=== PATIENT | female | born 1975 | race African-American/Black ===

== ENCOUNTER 2020-01-17 07:09 | Emergency (ER) | payer SELFPAY ==
[2020-01-17 08:27] LABS: ABSOLUTE EOSINOPHILS # (AUTO) 0.1 10^3/uL (0.0-0.6); ABSOLUTE LYMPHOCYTES (AUTO) 1.9 10^3/uL (0.5-4.7); ABSOLUTE MONOCYTES (AUTO) 0.4 10^3/uL (0.1-1.4); ABSOLUTE NEUT (AUTO) 1.5 10^3/uL (1.7-8.2); BASOPHILS % (AUTO) 0.4 % (0-2); EOSINOPHILS % (AUTO) 2.4 % (0-6); HEMATOCRIT 39.1 % (36.0-47.0); HEMOGLOBIN 13.3 g/dL (12.0-15.5); LYMPHOCYTES % (AUTO) 47.6 % (13-45); MEAN CORPUSCULAR HEMOGLOBIN 32.4 pg (27.0-33.4); MEAN CORPUSCULAR HGB CONC 33.9 g/dL (32.0-36.0); MEAN CORPUSCULAR VOLUME 96 fl (80-97); PLATELET COUNT 277 10^3/uL (150-450); RED CELL DISTRIBUTION WIDTH 13.6 % (11.5-14.0); SEGMENTED NEUTROPHILS % (AUTO) 39.6 % (42-78); TOTAL CELLS COUNTED % (AUTO) 100 %; WHITE BLOOD COUNT 3.9 10^3/uL (4.0-10.5)
[2020-01-17 08:34] LABS: INTERNATIONAL RATION (INR) 0.99; PROTHROMBIN TIME 13.1 SEC (11.4-15.4)
[2020-01-17] MEDS ORDERED: NORMAL SALINE 1000 ML 1,000 ML IV ONE (08:46)
[2020-01-17] MEDS ORDERED: HYDROMORPHONE HCL INJ/PF 2 MG/ML AMPULE IV ONE (08:47)
[2020-01-17] MEDS ORDERED: METHYLPREDNISOLONE INJ 125 MG/2 ML SDV IV ONE (08:48)
[2020-01-17] MEDS ORDERED: KETOROLAC TROMETHAMINE INJ/PF 30 MG/1 ML SDV IV ONE (08:48)
[2020-01-17 08:50] LABS: ALBUMIN 4.2 g/dL (3.5-5.0); ALKALINE PHOSPHATASE 49 U/L (38-126); ANION GAP 5 (5-19); ASPARTATE AMINO TRANSFERASE 17 U/L (14-36); BILIRUBIN,TOTAL 0.5 mg/dL (0.2-1.3); BLOOD UREA NITROGEN 8 mg/dL (7-20); CARBON DIOXIDE 30 mmol/L (22-30); CHLORIDE 102 mmol/L (98-107); CREATINE KINASE 49 U/L (30-135); GLUCOSE 106 mg/dL (75-110); POTASSIUM 4.3 mmol/L (3.6-5.0); TOTAL PROTEIN 7.3 g/dL (6.3-8.2)
[2020-01-17 09:01] LABS: CREATINE KINASE MB 0.28 ng/mL (<4.55)
[2020-01-17 09:05] LABS: TROPONIN I < 0.012 ng/mL
--- NOTE | 2020-01-17 10:19 | RADIOLOGY REPORT (SQ) ---
EXAM DESCRIPTION: CT LUMBAR SPINE WITHOUT IMAGES COMPLETED DATE/TIME: 01/17/2020 9:14 am REASON FOR STUDY: left side sciatica/back pain COMPARISON: None. TECHNIQUE: Axial images acquired through the lumbar spine without intravenous contrast. Images revi ewed with lung, soft tissue and bone windows. Reconstructed coronal and sagittal MPR images reviewe d. All images stored on PACS. All CT scanners at this facility use dose modulation, iterative reconstruction, and/or weight based d osing when appropriate to reduce radiation dose to as low as reasonably achievable (ALARA). [facility]: Dose Right [facility]: CareDose [facility]: Dose Right [facility]: Teradose 4D [facility]: [employer] RADIATION DOSE: mGy. LIMITATIONS: None. FINDINGS: SEGMENTATION: Normal. No transitional anatomy. ALIGNMENT: Normal. VERTEBRAL BODIES: No fractures. No dislocation. No acute findings. DISCS: Study limited by lack of intrathecal contrast. L1-L2: No significant protrusions. No significant stenosis. L2-L3: No significant protrusions. No significant stenosis. L3-L4: Annular bulging. No high-grade central stenosis. Mild bilateral foraminal narrowing. L4-L5: Broad-based annular disc bulging with mild central stenosis. There is bilateral foraminal jarett rowing. L5-S1: Annular disc bulging with a focal left paracentral protrusion resulting in mass effect on the left S1 nerve root. PEDICLES, TRANSVERSE PROCESSES: No fractures. No dislocation. No acute findings. FACETS, POSTERIOR ELEMENTS: No fractures. No dislocation. No spinal stenosis. HARDWARE: None in the spine. VISUALIZED RIBS: No fractures. SOFT TISSUES: No significant or acute finding in adjacent soft tissues. OTHER: No other significant finding. IMPRESSION: 1. Annular disc bulging at L3-L4 with mild bilateral foraminal narrowing. 2. Broad-based annular disc bulging at L4-L5 with mild central stenosis. There is bilateral foramin al narrowing. 3. Annular disc bulging at L5-S1 with a left paracentral protrusion resulting in mass effect on the left S1 nerve root. TECHNICAL DOCUMENTATION: JOB ID: [id number] Quality ID # [id number]: Final reports with documentation of one or more dose reduction techniques (e.g., Au tomated exposure control, adjustment of the mA and/or kV according to patient size, use of iterative reconstruction technique) 2010 [employer]- All Rights Reserved Reading location - IP/workstation name: [email or web address]
[2020-01-17 10:51] LABS: APPEARANCE,URINE CLEAR; BILIRUBIN,URINE NEGATIVE (NEGATIVE); COLOR,URINE YELLOW; GLUCOSE, URINE NEGATIVE (NEGATIVE); KETONES,URINE NEGATIVE (NEGATIVE); LEUKOCYTE ESTERASE,URINE NEGATIVE (NEGATIVE); NITRITE,URINE NEGATIVE (NEGATIVE); PROTEIN,URINE NEGATIVE (NEGATIVE); URINE SPECIFIC GRAVITY 1.019; UROBILINOGEN,URINE NEGATIVE mg/dL (<2.0)
--- NOTE | 2020-01-17 11:14 | ER Document Report ---
Entered by LIZ THOMPSON SCRIBE 01/17/20 0834 Acting as scribe for:ANDRES LINK MD ED General - General Chief Complaint: Back Pain Stated Complaint: BACK PAIN Time Seen by Provider: 01/17/20 07:31 Information source: Patient Notes: This 45 year old female patient presents to the emergency department today with left back pain. Patient states she injured her lower back and tailbone x2 years ago. Patient states she has not had back pain since then until yesterday while doing laundry. Patient states she is visiting from [place] and has been here x1 month to help her daughter, causing her to do more physical activity lately. Patient states she is with a pain clinic in [place] and has an appointment in x1 month. Patient states her prescribed oxycodone and muscle relaxer did not provide relief this morning for her back pain that is radiating to her left buttocks and left leg. - Related Data Allergies/Adverse Reactions: dogs Allergy (Mild, Uncoded 01/17/20 09:24) grass Allergy (Mild, Uncoded 01/17/20 09:24) pecans Allergy (Mild, Uncoded 01/17/20 09:24) Home Medications: hydrochlorthiazide, lasix, oxycodone 10/325 Past Medical History - General Information source: Patient - Social History Smoking Status: Never Smoker Cigarette use (# per day): No Frequency of alcohol use: Occasional Drug Abuse: Marijuana Lives with: Family Family History: Reviewed & Not Pertinent Patient has homicidal ideation: No Traumatic Medical History: Reports: Other - Lower back injury 2018 Past Surgical History: Reports: Hx Section, Hx Gynecologic Surgery, Hx Hysterectomy, Hx Tubal Ligation Review of Systems - Review of Systems Constitutional: No symptoms reported EENT: No symptoms reported Cardiovascular: No symptoms reported Respiratory: No symptoms reported Gastrointestinal: No symptoms reported Genitourinary: No symptoms reported Female Genitourinary: No symptoms reported Musculoskeletal: See HPI, Back pain - L, Other - LLE pain Skin: No symptoms reported Hematologic/Lymphatic: No symptoms reported Neurological/Psychological: No symptoms reported -: Yes All other systems reviewed and negative Physical Exam - Vital signs Vitals: Temp Pulse Resp BP Pulse Ox 98.6 F 76 20 145/90 H 99 01/17/20 07:16 01/17/20 07:16 01/17/20 07:16 01/17/20 07:16 01/17/20 07:16 - General General appearance: Alert, Other - Appears in significant distress - HEENT Head: Normocephalic, Atraumatic Eyes: Normal Pupils: PERRL - Respiratory Respiratory status: No respiratory distress Chest status: Nontender Breath sounds: Normal Chest palpation: Normal - Cardiovascular Rhythm: Regular Heart sounds: Normal auscultation Murmur: No - Abdominal Inspection: Normal Distension: No distension Bowel sounds: Normal Tenderness: Nontender - Extremities General upper extremity: Normal inspection. No: Edema General lower extremity: No: Edema Notes: Limited ROM of left lower extremity because of pain. Sensation intact of bilateral lower extremities. - Neurological Neuro grossly intact: Yes Cognition: Normal Orientation: AAOx4 Speech: Normal Sensory: Normal - Psychological Associated symptoms: Normal affect, Normal mood - Skin Skin Temperature: Warm Skin Moisture: Dry Skin Color: Normal Course - Re-evaluation Re-evalutation: 01/17/20 11:05 Patient reports her pain feels better at this time. Discussed with patient that she has multiple levels of disc bulging in her back L3-4 disc in the L4-5 disc and L5-S1 discs with a bulge of the S1 nerve root. This finding is consistent with patient's pain radiating down the left leg. - Vital Signs Vital signs: Temp Pulse Resp BP Pulse Ox 98.8 F 76 20 145/90 H 99 01/17/20 07:38 01/17/20 07:16 01/17/20 07:16 01/17/20 07:16 01/17/20 07:16 01/17/20 11:07 Vital signs stable - Laboratory Result Diagrams: 01/17/20 08:00 01/17/20 08:00 Laboratory results interpreted by me: 01/17/20 08:00 WBC 3.9 L Lymph % (Auto) 47.6 H Absolute Neuts (auto) 1.5 L Seg Neutrophils % 39.6 L 01/17/20 11:07 Laboratories within normal limits. - Diagnostic Test Radiology reviewed: Image reviewed, Reports reviewed Radiology results interpreted by me: 01/17/20 11:08 CT scan of the lumbar spine shows multilevel degenerative disc problems L3-4 L4- 5 and L5-S1. L5 1 has a central protrusion bulge particularly bulging on the S1 nerve root. Discharge - Discharge Clinical Impression: Sciatica associated with disorder of lumbar spine, Degenerative joint disease (DJD) of lumbar spine, Chronic pain Condition: Good Disposition: HOME, SELF-CARE Instructions: Oral Narcotic Medication ([facility]), Muscle Strain ([facility]) Additional Instructions: Sciatica Your symptoms suggest "sciatica." The pain of sciatica typically radiates down the leg. Numbness in the foot or calf may also occur. Sciatica is caused by irritation of the sciatic nerve or its branches. The irritation can be due to a herniated disk in the spine, swelling and inflammation in the muscles surrounding the sciatic nerve, or direct injury of the nerve itself. Most cases of sciatica will resolve with medical treatment. Bed rest is usually recommended initially. Surgery is only necessary when the condition will not improve with rest and antiinflammatory medication. Muscle relaxers are often given if muscle soreness is present. A CAT scan of the back may be performed if a herniated disk is suspected. Re-examination is necessary if you develop increasing numbness, localized weakness in the foot or ankle, or if the pain does not respond to rest. Continue your same other medications as you are taking for your chronic pain. Prescriptions: Cyclobenzaprine HCl [Flexeril 10 mg Tablet] 10 mg PO TIDP PRN #15 tab PRN Reason: muscle spasm Methylprednisolone [Medrol Dosepack (4 mg/Tab) 21 Tab/Dosepak] 4 mg PO ASDIR PRN #21 tab.ds.[id number] PRN Reason: Forms: Return to Work Referrals: MICHAEL LOYA, [ACTIVE STAFF] - Follow up as needed I personally performed the services described in the documentation, reviewed and edited the documentation which was dictated to the scribe in my presence, and it accurately records my words and actions.
[2020-01-17 11:41] VITALS: BP 130/89
== END 2020-01-17 11:41 | disposition home or self-care (01) ==
LOC: ER 07:09
DX: M51.16 Intervertebral disc disorders with radiculopathy, lumbar region (principal); M51.17 Intervertebral disc disorders with radiculopathy, lumbosacral region; M47.26 Other spondylosis with radiculopathy, lumbar region; M48.061 Spinal stenosis, lumbar region without neurogenic claudication; G89.29 Other chronic pain; F12.10 Cannabis abuse, uncomplicated; Z87.828 Personal history of other (healed) physical injury and trauma; Z79.891 Long term (current) use of opiate analgesic; Z79.899 Other long term (current) drug therapy; Z91.048 Other nonmedicinal substance allergy status; Z91.018 Allergy to other foods
CPT/HCPCS: 99284; 96361; 96374; 96375; 36415; 82553; 82550; 85025; 85610; 80053; 81001; 84484; 72131; J2930; J1885; J1170; J7030